=== PATIENT | female | born 1990 | race Caucasian/White ===

== ENCOUNTER 2018-01-12 18:39 | Emergency (ER) | payer OTHER ==
[~2018-01-12] VITALS: Ht 165.1 cm; Wt 62.6 kg
[~2018-01-12 18:39] MED LIST: AMOX1TAB12 PO; PREVACID30 MG PO
== END 2018-01-12 23:36 | disposition home or self-care (01) ==
LOC: ER 18:39
DX: R10.31 Right lower quadrant pain (principal)

== ENCOUNTER 2018-01-13 19:13 | Emergency (ER) | payer OTHER ==
[~2018-01-13] VITALS: Ht 165.1 cm; Wt 62.6 kg
[2018-01-14] MEDS ORDERED: CEFUROXIME250 MG PO (02:59)
[2018-01-14] MEDS ORDERED: ULTRACET PO (02:59)
== END 2018-01-14 02:53 | disposition home or self-care (01) ==
LOC: ER 19:13
DX: N39.0 Urinary tract infection, site not specified (principal); R10.2 Pelvic and perineal pain

== ENCOUNTER 2018-03-08 07:04 | Emergency (ER) | payer OTHER ==
[~2018-03-08] VITALS: Ht 165.1 cm; Wt 62.6 kg
[~2018-03-08 07:04] MED LIST changes: +CEFUROXIME250 MG PO; +ULTRACET PO
== END 2018-03-08 15:57 | disposition home or self-care (01) ==
LOC: ER 07:04
DX: K59.09 Other constipation (principal); R10.2 Pelvic and perineal pain

== ENCOUNTER 2018-08-07 06:17 | Emergency (ER) | payer OTHER ==
[~2018-08-07] VITALS: Ht 132.1 cm; Wt 62.6 kg
== END 2018-08-07 12:19 | disposition home or self-care (01) ==
LOC: ER 06:17
DX: K29.70 Gastritis, unspecified, without bleeding (principal); J06.9 Acute upper respiratory infection, unspecified; R50.9 Fever, unspecified

== ENCOUNTER 2019-03-12 14:40 | Emergency (ER) | payer OTHER ==
[~2019-03-12] VITALS: Ht 165.1 cm; Wt 72.6 kg
== END 2019-03-12 21:37 | disposition home or self-care (01) ==
LOC: ER 14:40
DX: J22 Unspecified acute lower respiratory infection (principal)

== ENCOUNTER 2019-06-23 08:53 | Emergency (ER) | payer OTHER ==
[~2019-06-23] VITALS: Ht 165.1 cm; Wt 77.1 kg
== END 2019-06-23 10:59 | disposition home or self-care (01) ==
LOC: ER 08:53
DX: G43.809 Other migraine, not intractable, without status migrainosus (principal)

== ENCOUNTER 2019-09-28 11:32 | Outpatient (CLI) | payer OTHER | END 2019-09-28 11:38 | disposition home or self-care (01) | LOC: RX STUDY 11:32 | DX: N70.11 Chronic salpingitis (principal); N94.5 Secondary dysmenorrhea; N97.8 Female infertility of other origin ==

== ENCOUNTER 2019-11-22 18:12 | Emergency (ER) | payer OTHER ==
[~2019-11-22] VITALS: Ht 165.1 cm; Wt 77.1 kg
== END 2019-11-22 22:01 | disposition home or self-care (01) ==
LOC: ER 18:12
DX: M54.16 Radiculopathy, lumbar region (principal); R10.2 Pelvic and perineal pain